=== PATIENT | female | born 1990 | race Caucasian/White ===

== ENCOUNTER 2018-11-22 18:31 | Emergency (ER) | payer OTHER ==
[2018-11-22] MEDS: HYDROCODONE/APAP (5/325) TAB PO (19:49)
== END 2018-11-22 21:14 | disposition home or self-care (01) ==
LOC: FTE 18:31
DX: S90.512A Abrasion, left ankle, initial encounter (principal); X50.1XXA Overexertion from prolonged static or awkward postures, initial encounter; Y92.9 Unspecified place or not applicable
CPT/HCPCS: 73610; 99283-25